=== PATIENT | male | born 1965 | race Caucasian/White ===

== ENCOUNTER 2016-04-02 11:04 | Emergency (ER) | payer OTHER ==
[~2016-04-02] VITALS: Ht 177.8 cm; Wt 83.9 kg
[~2016-04-02 11:04] MED LIST: SULF1TAB35 PO
--- OUTSIDE RECORDS SUMMARY | 2016-04-02 11:09 | XMS REPORT | Continuity of Care Document ---
Author Author Interface Organization Interface Address Unknown Phone Unavailable Problems Problem Status Onset Date Classification Date Reported Comments Source Medications Medication Details Route Status Patient Instructions Ordering Provider Order Date Source Allergies, Adverse Reactions, Alerts Substance Category Reaction Severity Reaction type Status Date Reported Comments Source Immunizations Immunization Date Given Site Status Last Updated Comments Source Results Order Name Results Value Reference Range Date Interpretation Comments Source Vital Signs Vital Sign Value Date Comments Source Encounters Location Location Details Encounter Type Encounter Number Reason For Visit Attending Provider ADM Date DC Date Status Source Procedures Procedure Code Date Perfomer Comments Source
[2016-04-02] MEDS ORDERED: D-ME118S33 PO (11:24)
--- NOTE | 2016-04-02 11:25 | ED Cough/URI ---
General Chief Complaint: Cough/Cold/Flu Symptoms Stated Complaint: COUGH/NO APPETITE/DIZZINESS Nursing Triage Note: PT TO ED 5 W/ C/O COUGH, CONGESTION, DECREASED APPETITE ONSET X3-4 DAYS. Source: patient Exam Limitations: no limitations History of Present Illness Time seen by provider: 11:22 Initial Comments To ER with a nonproductive cough, nasal congestion, decreased appetite for 3-4 days. He has been able to drink plenty of fluids but has had no appetite for food. Chills but no measured fever. He denies shortness of breath. Timing/Duration: constant Prior Episodes/Possible Cause: no prior episodes Associated Symptoms: cough, fever/chills, nasal congestion Allergies and Home Medications Allergies Coded Allergies: No Known Allergies (Unverified Allergy, Mild, 07/01/09) Home Medications D-Methorphan Hb/P-Epd HCl/Bpm 118 Ml Syrup #120 5 ML PO Q4H Prescribed by: RONY GORE on 04/02/16 1124 Constitutional: see HPI EENTM: nose congestion see HPI Respiratory: see HPI cough Genitourinary: no symptoms reported Musculoskeletal: no symptoms reported Skin: no symptoms reported Psychiatric/Neurological: No Symptoms Reported Hematologic/Lymphatic: No Symptoms Reported Immunological/Allergic: no symptoms reported Past Kvogitv-Lmmjwb-Qhrcjg Hx Patient Social History Alcohol Use: Denies Use Recreational Drug Use: No Smoking Status: Never a Smoker Recent Foreign Travel: No Contact w/Someone Who Travel: No Recent Infectious Disease Expo: No Recent Hopitalizations: No Physical Abuse Screen: No Sexual Abuse: No Surgeries HX Surgeries: No Respiratory Hx Respiratory Disorders: No Cardiovascular Hx Cardiac Disorders: No Neurological Hx Neurological Disorders: No Reproductive System Hx Reproductive Disorders: No Genitourinary Hx Genitourinary Disorders: No Gastrointestinal Hx Gastrointestinal Disorders: No Musculoskeletal Hx Musculoskeletal Disorders: No Endocrine Hx Endocrine Disorders: No HEENT HX ENT Disorders: No Cancer Hx Cancer: No Psychosocial Hx Psychiatric Problems: No Blood Transfusions Hx Blood Disorders: No Physical Exam Vital Signs Vital Sign - Last 12Hours 04/02/16 11:07 Temp 98.0 Pulse 74 Resp 20 B/P 114/86 Pulse Ox 96 O2 Delivery Room Air Capillary Refill : Less Than 3 Seconds General Appearance: WD/WN no apparent distress Eyes: Bilateral Eye EOMI, Bilateral Eye Normal Inspection, Bilateral Eye PERRL HEENT: PERRL/EOMI normal ENT inspection Neck: non-tender full range of motion Respiratory: normal breath sounds no respiratory distress no accessory muscle use Cardiovascular: regular rate, rhythm no murmur Gastrointestinal: normal bowel sounds non tender soft Extremities: normal range of motion non-tender Neurologic/Psychiatric: alert normal mood/affect oriented x 3 Skin: normal color warm/dry Progress/Results/Core Measures Results/Orders Micro Results Microbiology 04/02/16 Influenza Types A,B Antigen (JULIA) - Final, Complete My Orders Orders-RONY GORE APRN Influenza A And B Antigens (04/02/16 11:22) Chest Pa/Lat (2 View) (04/02/16 11:22) Vital Signs/I&O Vital Sign - Last 12Hours 04/02/16 11:07 Temp 98.0 Pulse 74 Resp 20 B/P 114/86 Pulse Ox 96 O2 Delivery Room Air Blood Pressure Mean: 95 Departure Impression Impression: Primary Impression: Pneumonia Qualified Code: J18.1 - Lobar pneumonia, unspecified organism Disposition: HOME, SELF-CARE Condition: Stable Departure-Patient Inst. Decision time for Depature: 11:23 Referrals: KIMMIE SOL DO (PCP/Family) Primary Care Physician Patient Instructions: Viral Upper Respiratory Infection, Adult (DC) Add. Discharge Instructions: 1. Return to ER for any concerns 2. Follow-up with your doctor next week All discharge instructions reviewed with patient and/or family. Voiced understanding. Scripts Amoxicillin/Potassium Clav (Augmentin 875-125 Tablet)1 Each Tablet1 Each PO BID #14 TAB Prov:RONY GORE APRN 04/02/16 D-Methorphan Hb/P-Epd HCl/Bpm (Bromfed Dm Cough Syrup)118 Ml Syrup5 Ml PO Q4H # 120 ML Prov:RONY GORE APRN 04/02/16 Work/School Note: Work Release Form Date Seen in the Emergency Department: Apr 02, 2016 Return to Work: Apr 04, 2016 Restrictions: No Restrictions Copy Copies To 1: KIMMIE SOL PETER J APRN Apr 02, 2016 11:25
--- NOTE | 2016-04-02 11:44 | Diagnostic Imaging Report ---
INDICATION: Cough, feeling sick COMPARISON: None available. Technique: Frontal and lateral radiograph of the chest dated April 02, 2016. Findings: The cardiac silhouette is within normal limits. No significant pulmonary vascular congestion. Focal opacities are identified within the left lower lobe. The right lung appears clear. No pleural effusion. No pneumothorax. Chronic left-sided rib fractures. No acute osseous abnormality. IMPRESSION: Left lower lobe opacities which likely relate to pneumonia. Recommend followup radiographs 10-14 days after appropriate therapy to ensure resolution as underlying neoplasm is not excluded. Dictated by: Dictated on workstation # [id number]
[2016-04-02] MEDS ORDERED: AMOX-358 PO (11:47)
[2016-04-02 11:52] VITALS: BP 0/0
== END 2016-04-02 11:52 | disposition home or self-care (01) ==
LOC: EDUNIT# 11:04 → ER 11:05
DX: J18.9 Pneumonia, unspecified organism (principal)
CPT/HCPCS: 71020; 87804